=== PATIENT | female | born 1965 | race Caucasian/White ===

== ENCOUNTER → 2020-08-27 | Outpatient (CLI) | payer MEDICARE | LOC: KOH-I 13:00 | DX: M54.2 Cervicalgia (principal); M47.22 Other spondylosis with radiculopathy, cervical region | CPT/HCPCS: 72141 ==

== ENCOUNTER 2021-04-17 06:11 | Emergency (ER) | payer MEDICARE ==
[2021-04-17 06:59] LABS: HEMOGLOBIN 15.2 gm/dl (12.3-15.3); RED BLOOD COUNT 4.95 M/UL (4.00-5.10); WHITE BLOOD COUNT 7.8 K/UL (4.5-11.0)
[2021-04-17 07:40] LABS: BUN/CREATININE RATIO 22 (0-10)
== END 2021-04-17 11:10 | disposition home or self-care (01) ==
LOC: ER1 06:11
PROVIDERS: Nurse Practitioner
DX: M54.2 Cervicalgia (principal); G89.29 Other chronic pain; R10.9 Unspecified abdominal pain; F17.210 Nicotine dependence, cigarettes, uncomplicated; Z88.5 Allergy status to narcotic agent; Z88.6 Allergy status to analgesic agent; Z90.49 Acquired absence of other specified parts of digestive tract
CPT/HCPCS: 72125; 73562; 80053; 81001; 83605; 85025; 96374; 99284; J1170; Q9967